=== PATIENT | female | born 1950 | race Caucasian/White ===

== ENCOUNTER 2016-08-10 23:18 | Emergency (ER) | payer OTHER ==
[~2016-08-10] VITALS: Ht 154.9 cm; Wt 72.0 kg
[~2016-08-10 23:18] MED LIST: ACYC800T PO; ASPI-556 PO; DIPH25TA20 PO; IBUP-2070 PO; ISOS10TA2 PO; ISOS10TA8 PO; PROZ10 PO; SIMV20 PO; XALA2.5OS OP
[2016-08-10] MEDS ORDERED: ACET160O11 PO (23:51)
[2016-08-10] MEDS ORDERED: FLUT16H NASAL (23:51)
[2016-08-10] MEDS ORDERED: GABA-531 PO (23:51)
[2016-08-10] MEDS ORDERED: FAMO20 PO (23:51)
[2016-08-10] MEDS ORDERED: CALC600T95 PO (23:51)
[2016-08-10] MEDS ORDERED: OXYB5 PO (23:51)
[2016-08-11 00:31] LABS: BASOPHILS # (AUTO) 0.04 K/uL (0.00-0.20); BASOPHILS % (AUTO) 0.6 % (0.0-2.0); EOSINOPHILS # (AUTO) 0.19 K/uL (0.00-0.70); EOSINOPHILS % (AUTO) 2.56 % (1.0-6.0); HEMATOCRIT 39.7 % (36-46); HEMOGLOBIN 13.1 g/dL (12.0-16.0); LYMPHOCYTES # (AUTO) 1.3 K/uL (1.0-4.8); LYMPHOCYTES % (AUTO) 17.1 % (22.0-44.0); MEAN CORPUSCULAR HGB CONC 33.1 G/dL (31.0-37.0); MEAN CORPUSCULAR VOLUME 85 fL (80-100); MONOCYTES # (AUTO) 0.6 K/uL (0.1-1.0); MONOCYTES % (AUTO) 8.3 % (2.0-9.0); NEUTROPHILS # (AUTO) 5.2 K/uL (1.8-7.7); NEUTROPHILS % (AUTO) 71.5 % (40.0-70.0); PLATELET COUNT (AUTO) 173 K/uL (150-450); RED CELL DISTRIBUTION WIDTH 14.4 % (11.5-14.5); WHITE BLOOD COUNT (AUTO) 7.3 K/uL (4.5-11.0)
[2016-08-11 00:42] LABS: ANION GAP 8 mmol/L (8-16); CALCIUM, TOTAL 9.2 mg/dL (8.8-10.5); CARBON DIOXIDE 30 mmol/L (22-29); CHLORIDE 103 mmol/L (98-107); CREATININE 0.82 mg/dL (0.60-1.30); GLOMERULAR FILTR. RATE CALC > 60 mL/min (>60); POTASSIUM 4.3 mmol/L (3.5-5.1); SODIUM SERUM 141 mmol/L (136-145); UREA NITROGEN, BLOOD 11 mg/dL (7-18)
[2016-08-11 00:59] LABS: B-TYPE NATRIURETIC PEPTIDE 55 pg/mL (0-100)
[2016-08-11 01:06] LABS: ALANINE AMINOTRANSFERASE 22 U/L (12-78); ALBUMIN 3.5 g/dL (3.4-5.0); ASPARTATE AMINOTRANSFERASE 19 U/L (15-37); BILIRUBIN,TOTAL 0.5 mg/dL (0.1-1.0); CREATINE KINASE, TOTAL 88 U/L (26-192); TOTAL PROTEIN, SERUM 8.5 g/dL (6.4-8.2)
[2016-08-11 04:05] VITALS: BP 117/70
[2016-08-11] MEDS: OXYMETAZOLINE HCL 0.05% 15 ML NASAL SPRAY NASAL ONE (04:25)
== END 2016-08-11 04:30 | disposition home or self-care (01) ==
LOC: EMS 23:19
DX: R04.0 Epistaxis (principal); J06.9 Acute upper respiratory infection, unspecified; R00.2 Palpitations; E78.00 Pure hypercholesterolemia, unspecified; Z79.82 Long term (current) use of aspirin
CPT/HCPCS: 93005; 99285